=== PATIENT | female | born 1990 | race Hispanic/Latino ===

== ENCOUNTER → 2022-03-24 | Outpatient (CLI) | payer OTHER ==
[~2022-03-24] MED LIST: IOPAMIDOL 300MG/ML 100 ML INFUS..BTL IV ONE
== END ==
LOC: DX 11:23
PROVIDERS: ATTEND Obstetrics & Gynecology
DX: R10.2 Pelvic and perineal pain (principal)
CPT/HCPCS: 74740; 81025; Q9967